=== PATIENT | female | born 1985 | race Two or more races ===

== ENCOUNTER 2019-07-17 17:36 | Emergency (ER) | payer OTHER ==
[2019-07-17] MEDS ORDERED: METOCLOPRAMIDE 10 MG/2 ML VIAL IVP STA (20:11)
[2019-07-17] MEDS ORDERED: KETOROLAC 30 MG/ML VIAL IVP STA (20:11)
[2019-07-17] MEDS ORDERED: SODIUM CHLORIDE 0.9% 1,000 ML IV ONE (20:12)
--- NOTE | 2019-07-17 20:15 | ED Physician Documentation ---
History of Present Illness - Stated complaint Stated Complaint: HEADACHE, LT SIDE NECK/SHOULDER PAIN - Chief complaint Chief Complaint: Neuro - Additonal information Additional information: This is a 33-year-old female with a history of of migraines, who presents with a headache that has persisted for ~4 days. She states that she is typically able to control her headaches with Fioricet and Maxalt, but she has been taking this over the last several days without much improvement. She states that the headache is typical for her in character, though she notes that it does radiates down towards her left arm. She denies any chest pain. No shortness of breath, no weakness or numbness. The headache was gradual in onset. She denies any history of hypertension, diabetes, or heart problems. Review of Systems Constitutional: denies: Fever Cardiac: denies: Chest pain / pressure Respiratory: denies: Dyspnea Neurologic: reports: Headache PD PAST MEDICAL HISTORY - Past Medical History Neuro: Migraines - Present Medications Home Medications: Ambulatory Orders Medication Instructions Recorded Confirmed Ondansetron Odt [Zofran] 4 mg TL Q6H PRN #10 tablet 07/17/19 - Allergies Allergies/Adverse Reactions: Allergies Allergy/AdvReac Type Severity Reaction Status Date / Time shrimp Allergy Itching Uncoded 07/17/19 17:52 - Living Situation Living Arrangement: reports: At home - Social History Does the pt smoke?: No Smoking Status: Never smoker PD ED PE NORMAL - Vitals Vital signs reviewed: Yes - General General: Alert and oriented X 3, No acute distress - HEENT HEENT: PERRL - Neck Neck: Supple, no meningeal sign - Cardiac Cardiac: RRR, No murmur - Respiratory Respiratory: Clear bilaterally - Abdomen Abdomen: Soft, Non distended - Derm Derm: Warm and dry - Extremities Extremities: No deformity - Neuro Neuro: Alert and oriented X 3, ostomy care nurse 2-12 intact, No motor deficit, No sensory deficit, Normal speech - Psych Psych: Normal mood, Normal affect Results - Vitals Vitals: Vital Signs - 24 hr 07/17/19 07/17/19 07/17/19 17:49 20:20 20:21 Temperature 36 C L Heart Rate 72 70 Respiratory 18 18 Rate Blood Pressure 144/100 H 145/113 H O2 Saturation 99 100 07/17/19 21:27 Temperature 36.5 C Heart Rate 70 Respiratory 18 Rate Blood Pressure 134/91 H O2 Saturation 100 Oxygen O2 Source Room air - EKG (time done) 20:32 Other comments: Other comments (Rate 63, rhythm sinus, there is no ST segment elevation or depression, no T wave inversions. Intervals are within normal limits.) - Labs Labs: Laboratory Tests 07/17/19 07/17/19 07/17/19 20:24 20:24 20:24 WBC 5.5 RBC 4.72 Hgb 14.3 Hct 41.2 MCV 87.3 MCH 30.3 MCHC 34.7 RDW 11.5 L Plt Count 273 MPV 8.6 Neut # (Auto) 2.5 Lymph # (Auto) 2.4 Holt # (Auto) 0.3 Eos # (Auto) 0.1 Baso # (Auto) 0.0 Absolute Nucleated RBC 0.00 Nucleated RBC % 0.0 Sodium 139 Potassium 3.7 Chloride 104 Carbon Dioxide 28 Anion Gap 7.0 BUN 12 Creatinine 0.7 Estimated GFR (MDRD) 98 Glucose 99 Calcium 9.6 Troponin I High Sens < 2.3 L PD MEDICAL DECISION MAKING - ED course Complexity details: considered differential (Migraine, tension headache, subarachnoid hemorrhage, ACS, dysrhythmia) ED course: On exam patient is well-appearing, neurologic exam is Normal. Her symptoms are similar to her typical migraine, but have lasted a bit longer than usual. She did not have any chest pain or shortness of breath, and she has very few cardiac risk factors, however her radiation towards her left arm Prompted me to obtain EKG and troponin, both of which are unremarkable without signs of ischemia or dysrhythmia. Her labs are unrevealing. She has no red flags that would suggest subarachnoid hemorrhage, infection, or other more concerning pathology. After a migraine cocktail Her headache is almost resolved, she is feeling well and would like to go home. I discussed outpatient follow-up, return precautions, and patient was discharged home in good condition Departure - Departure Disposition: 01 Home, Self Care Clinical Impression: Headache Qualifiers: Headache type: unspecified Headache chronicity pattern: acute headache Intractability: not intractable Qualified Code(s): R51 - Headache Condition: Good Instructions: ED Cephalgia Unspecified Follow-Up: Justino Murcia ARNP [Primary Care Provider] - Within 1 week Prescriptions: Ondansetron Odt [Zofran] 4 mg TL Q6H PRN #10 tablet PRN Reason: Nausea / Vomiting Comments: You were seen today for headache that radiated down towards your left arm. Your labs are reassuring, do not see signs of strain of your heart. Please follow-up with your primary care provider and discuss whether you may need additional medications for headache control. If you are developing any new or concerning symptoms such as chest pain, trouble breathing, weakness or numbness, return to the emergency department. Discharge Date/Time: 07/17/19 21:28
[2019-07-17 20:31] LABS: BASOPHILS % (AUTO) 0.5 %; EOSINOPHILS # (AUTO) 0.1 10^3/uL (0.0-0.7); HGB - HEMOGLOBIN 14.3 g/dL (12.0-16.0); LYMPHOCYTES # (AUTO) 2.4 10^3/uL (1.5-3.5); LYMPHOCYTES % (AUTO) 44.5 %; MEAN CORPUSCULAR HEMOGLOBIN 30.3 pg (27.0-31.0); MEAN CORPUSCULAR HGB CONC 34.7 g/dL (32.0-36.0); MEAN CORPUSCULAR VOLUME 87.3 fL (81.0-99.0); MEAN PLATELET VOLUME 8.6 fL (7.9-10.8); MONOCYTES # (AUTO) 0.3 10^3/uL (0.0-1.0); MONOCYTES % (AUTO) 6.2 %; NEUTROPHILS # (AUTO) 2.5 10^3/uL (1.5-6.6); NEUTROPHILS % (AUTO) 46.6 %; PLT - PLATELET COUNT 273 10^3/uL (130-450); RED BLOOD COUNT 4.72 10^6/uL (4.20-5.40); RED CELL DISTRIBUTION WIDTH 11.5 % (12.0-15.0); WHITE BLOOD COUNT 5.5 x10^3/uL (4.8-10.8)
[2019-07-17 20:44] LABS: CALCIUM 9.6 mg/dL (8.5-10.3); CREATININE 0.7 mg/dL (0.4-1.0)
[2019-07-17 21:27] VITALS: BP 134/91
== END 2019-07-17 21:28 | disposition home or self-care (01) ==
LOC: ED 17:36
DX: R51 Headache (principal); M79.602 Pain in left arm; Z86.69 Personal history of other diseases of the nervous system and sense organs
CPT/HCPCS: 36415; 80048; 84484; 85025; 93005; 96361; 96374; 99283; 99284; J2765